=== PATIENT | male | born 1980 | race Caucasian/White ===

== ENCOUNTER 2016-06-18 07:48 | Emergency (ER) | payer OTHER ==
[2016-06-18 08:09] VITALS: BP 123/75
--- NOTE | 2016-06-18 09:23 | UC ---
Vinay Hill Claudia, [facility] on 06/18/16 at 0908 . General HPI - HPI Summary HPI Summary: In Room Note: 35 year old male presents to the [facility] with sinus congestion, ear ache, overall body aches, productive cough, nasal discharge. Pt notes that he has been at [facility] with his son for the past few days since his son was getting surgery. Pt notes gradual onset of Sx starting Wednesday night. He denies NVD, abd pain, dysuria. He notes no OTC medications have alleviated his Sx. Pt denies any aggravating factors. Pt notes constant progressive worsening of Sx over the past few days. Note: Vital signs reviewed. Temp 98.7, pulse 66, BP 123/75. Nurse's Note: pt states that wednesday he began to have a sore throat and ear pressure. pt states he has muscle aches. wednesday began to have nasal congestion with cough and thick mucous production. - History of Current Complaint Chief Complaint: UCRespiratory Stated Complaint: SINUS ISSUE Time Seen by Provider: 06/18/16 09:05 Hx Obtained From: Patient Onset/Duration: Gradual Onset, Lasting Days Timing: Constant Associated Signs & Symptoms: Positive: Cough, Other - SINUS PAIN, NASAL DISCHARGE. Negative: Diarrhea, Dysuria, Fever, Nausea, Vomiting - Allergy/Home Medications Allergies/Adverse Reactions: Allergies Allergy/AdvReac Type Severity Reaction Status Date / Time Amoxicillin [From Augmentin] Allergy Nausea Verified 10/22/15 18:13 Clavulanic Acid Allergy Nausea Verified 10/22/15 18:13 [From Augmentin] Home Medications: Home Medications Pseudoephedrine-Guaifenesin [Mucinex D 60-600 mg] 1 tab PO 06/18/16 [History] PMH/Surg Hx/FS Hx/Imm Hx Previously Healthy: Yes Endocrine History Of: Denies: Diabetes, Thyroid Disease Cardiovascular History Of: Denies: Cardiac Disorders, Hypertension Respiratory History Of: Denies: COPD, Asthma GI/ History Of: Denies: Ulcer - Surgical History Surgical History: Yes Surgery Procedure, Year, and Place: t&a 1992, wisdom teeth extraction - Family History Known Family History: Positive: Hypertension, Diabetes - Social History Occupation: Employed Full-time Lives: With Family Alcohol Use: Occasionally Substance Use Type: None Smoking Status (MU): Never Smoked Tobacco Review of Systems Constitutional: Other - NO FEVER CHILLS Skin: Negative Eyes: Negative ENT: Ear Ache, Nasal Discharge Respiratory: Cough Cardiovascular: Negative Gastrointestinal: Negative, Other - NO ABD PAIN NVD Genitourinary: Negative, Other - NO DYSURIA Motor: Negative Neurovascular: Negative Musculoskeletal: Negative Neurological: Negative Psychological: Negative All Other Systems Reviewed And Are Negative: Yes Physical Exam Triage Information Reviewed: Yes Vital Signs: Initial Vital Signs Temp 98.7 F 06/18/16 08:06 Pulse 66 06/18/16 08:06 Resp 18 06/18/16 08:06 BP 123/75 06/18/16 08:06 Pulse Ox 99 06/18/16 08:06 Vital Signs Reviewed: Yes - Additional Comments Appearance: well-appearing, no pain distress, well-nourished Eyes: Conjunctiva clear ENT: Hearing grossly normal, pharynx normal, TMs normal, (-) muffled/hoarse voice, MILDLY TENDER MAXILLARY SINUSES Neck: Supple, no lymphadenopathy Resp: Chest non-tender, lungs clear, normal breath sounds, no respiratory distress Cardio: RRR, No murmur Abd: nontender, no organomegaly, soft Bowel: Present Musc: Strength intact, BHAGAT Neuro: Alert Psych: Age appropriate behavior Skin: (-) rashes Course/Dx - Course Course Of Treatment: Pt Sx are consitent with sinus congestion and possible infection. He does NOT have an allergy to amoxicillin or augmentin he does have GI intolerance to Augmentin. I will treat him for sinusitis. Medications have been included in the original chart and reviewed. Patient is Urgent/Emergent. BP elevated due to current condition w/o HTN in PMH - Differential Dx - Multi-Symptom Differential Diagnoses: Other - URI, Sinusitis Provider Diagnoses: SINUSITIS Discharge - Discharge Plan Condition: Stable Disposition: HOME Prescriptions: Amoxicillin (*) [Amoxicillin 875 MG (*)] 875 mg PO BID #20 tab MDD 2 Patient Education Materials: Sinusitis (ED) Referrals: No Primary Care Phys,NOPCP [Primary Care Provider] - Additional Instructions: WE DISCUSSED: 1. You have sinusitis. 2. Start antibiotic. You are not allergic to amoxcillin. 3. Also: COUGH, CONGESTION of CHEST, SINUSES OR EARS: The most important goal is to liquefy all the phlegm and get it out of your head and chest. Any illness causing cough, congestion, sore throat or sinus discomfort can be helped by doing the following: STAND UNDER SHOWER STREAM TO LOOSEN SECRETIONS. STAY AWAY FROM ANY SMOKE OR IRRITANTS. WHAT ELSE CAN HELP RELIEVE YOUR SYMPTOMS: GENERAL TYPES OF MEDICINE THAT MAY HELP DECONGESTANTS: helps relieve stuffiness and clears sinuses. Pseudoephedrine ( Sudafed or generic) is effective but you need to ask the pharmacist for it because it may be kept behind the counter. ANTIHISTAMINES: are NOT helpful in many colds and flus because they can worsen sore throat, dry eyes and mouth and cause drowsiness. Examples are diphenhydramine, doxylamine and chlorpheniramine. They can help dry you out if you are having profuse, clear drainage from the nose. EXPECTORANTS: helps thin mucous in the nose and chest, making it easier to clear the fluid out. Expectorants are in most combination cough/cold remedies and should be taken with plenty of water. Guaifenesin is the most common expectorant and it comes in pill or liquid form. Mucinex is an extended release form of guaifenesin. COUGH SUPPRESANT: reduces the body's cough reflex. Dextromethorphan is in over the counter products, but sometimes narcotics such as codeine or hydrocodone are used to suppress cough. SPECIFIC MEDICATIONS: The most important goal is to liquefy all the phlegm and get it out of your head and chest: The following medicines (in prescription form or you can buy them without prescription) may help: To help with cough: DEXTROMETHORPHAN (Vicks, Robitussin, Nyquil and other brands) To help break up phlegm: GUAIFENESIN (Mucinex, Robitussin, other brands) To help clear congestion: PSEUDOEPHEDRINE (Sudafed, Dimetapp, other brands) TRY TO CLEAR NOSE: AFRIN NASAL SPRAY: 2-3 SPRAYS PER NOSTRIL, TWICE A DAY FOR TWO DAYS ONLY. USEFUL WAYS TO FEEL BETTER WITHOUT MEDICATIONS: STAND UNDER SHOWER STREAM TO LOOSEN SECRETIONS. USE A VAPORIZOR. STAY AWAY FROM ANY SMOKE OR IRRITANTS. USE SALINE NASAL SPRAY TO KEEP FLOW OF MUCOUS FROM NOSTRILS AND SINUSES. CONSIDER USING NETI POT TO HELP WITH ALLERGIES AND CONGESTION IN THE NOSE. USE THIS THREE TIMES A WEEK. YOU CAN GET THIS AT [facility] IN [place] OR VARIOUS DRUGSTORES. DRINK LOTS OF WARM FLUIDS USEFUL HOME REMEDIES: WARM WATER GARGLES, WITH TSP OF SALT PER 8 OUNCES OF WATER, GARGLE FOR A FEW SECONDS AND SPIT OUT; GARGLE AND SPIT OUT; EVERY THREE HOURS. AND/OR: WARM WATER OR TEA, HONEY AND LEMON; 2-3 CUPS A DAY. FOR SORE THROAT: KEEP THROAT MOIST WITH LOZENGES; TEA AND HONEY. USE WARM WATER GARGLES 3-4 TIMES A DAY. FOLLOW UP: RE-CHECK IN 1O DAYS, NEEDED, IF YOU ARE NOT IMPROVING. RETURN HERE OR SEE YOUR PHYSICIAN. RE-CHECK SOONER IF INCREASED PAIN OR TEMPERATURE. The documentation as recorded by the Vinay willis Claudia accurately reflects the service I personally performed and the decisions made by me, Baldemar Winter MD.
== END 2016-06-18 09:30 | disposition home or self-care (01) ==
LOC: UCEAST 07:48
DX: J32.9 Chronic sinusitis, unspecified (principal)
CPT/HCPCS: 99212; G0463